=== PATIENT | female | born 1960 | race Caucasian/White ===

== ENCOUNTER → 2023-06-20 | Outpatient (CLI) | payer BC, SELFPAY ==
[2023-06-20 10:36] LABS: Vitamin D,25 Hydroxy 46.7 ng/mL
[2023-06-20 10:44] LABS: AST(SGOT) 14 U/L (15-37); Alanine Aminotransfer ALT/SGPT 21 U/L (13-56); Albumin, Serum 3.5 g/dL (3.2-5.0); Alkaline Phosphatase 101 U/L (45-117); Anion Gap 5 (5-15); BUN 15 mg/dL (7-18); BUN/Creat Ratio 19.4 RATIO (10-20); Chloride 109 mmol/L (98-107); Cholesterol 163 mg/dL (200); Creatinine, Serum 0.78 mg/dL (0.55-1.02); EST Glomerular Filtration Rate 80 mL/min (>60); Est Glom Filt Rate - Afr Amer 96 mL/min (>60); Globulin 3.6 g/dL (2.2-4.2); Glucose 109 mg/dL (74-106); High Density Lipoprotein 43 mg/dL; Potassium 3.6 mmol/L (3.5-5.1); Protein, Total 7.1 g/dL (6.4-8.2); Sodium Level 137 mmol/L (136-145); T4 Free Direct 0.85 ng/dL (0.76-1.46); Triglycerides 223 mg/dL; Very Low Density Lipoprotein 45 mg/dL (5-40)
== END | disposition home or self-care (01) ==
LOC: MTLAB 09:10
PROVIDERS: PCP Family Medicine; Referring Provider Family Medicine; Visit Provider Family Medicine
DX: E03.9 Hypothyroidism, unspecified (principal); E78.5 Hyperlipidemia, unspecified; R53.83 Other fatigue
CPT/HCPCS: 36415; 80053; 80061; 82306; 84439; 84443

== ENCOUNTER → 2023-08-22 | Outpatient (CLI) | payer BC, SELFPAY ==
[2023-08-22 18:13] LABS: Thyroid Stim Hormone (TSH) 0.02 uIU/mL (0.358-3.74)
== END | disposition home or self-care (01) ==
LOC: MTLAB 14:10
PROVIDERS: PCP Family Medicine; Referring Provider Family Medicine; Visit Provider Family Medicine
DX: E03.9 Hypothyroidism, unspecified (principal)
CPT/HCPCS: 36415; 84443

== ENCOUNTER → 2023-10-04 | Outpatient (CLI) | payer BC, SELFPAY ==
[2023-10-04 13:01] LABS: Thyroid Stim Hormone (TSH) 0.02 uIU/mL (0.358-3.74)
== END | disposition home or self-care (01) ==
LOC: MFPLAB 11:01
PROVIDERS: PCP Family Medicine; Visit Provider Family Medicine
DX: E03.9 Hypothyroidism, unspecified (principal)
CPT/HCPCS: 36415; 84443

== ENCOUNTER → 2024-01-10 | Outpatient (CLI) | payer BC, SELFPAY ==
[2024-01-10 15:40] LABS: Thyroid Stim Hormone (TSH) 0.026 uIU/mL (0.358-3.740)
== END | disposition home or self-care (01) ==
LOC: MTLAB 10:48
PROVIDERS: PCP Family Medicine; Referring Provider Family Medicine; Visit Provider Family Medicine
DX: E03.9 Hypothyroidism, unspecified (principal)
CPT/HCPCS: 36415; 84443

== ENCOUNTER → 2024-06-13 | Outpatient (CLI) | payer MEDICARE, SELFPAY ==
[2024-06-13 15:37] LABS: Thyroid Stim Hormone (TSH) 0.542 uIU/mL (0.358-3.740)
[2024-06-17 17:07] LABS: Thyroid Stim Immunoglob <0.10 IU/L (0.00-0.55)
== END | disposition home or self-care (01) ==
PROVIDERS: PCP Family Medicine; Referring Provider Family Medicine; Visit Provider Family Medicine
DX: E03.9 Hypothyroidism, unspecified (principal)
CPT/HCPCS: 36415; 84443; 84445

== ENCOUNTER → 2024-12-26 | Outpatient (CLI) | payer MEDICARE, SELFPAY ==
--- NOTE | 2024-12-26 14:21 | BD_ITS ---
PROCEDURE: DEXA BONE DENSITY STUDY 12/26/2024 REASON FOR EXAM: F, age 64 y/o . Postmenopausal. TECHNIQUE: DEXA BONE DENSITY STUDY COMPARISON: None FINDINGS: BMD and T-SCORES Lumbar spine: 0.896 g/cm2, T-score -1.4 Levels: L1 through L4 Left femoral neck: 0.616 g/cm2, T-score -2.1 Femoral neck comparison data not recommended for monitoring change. Left total hip: 0.782 g/cm2, T-score -1.3 Right femoral neck: 0.636 g/cm2, T-score -1.9 Femoral neck comparison data not recommended for monitoring change. Right total hip: 0.789 g/cm2, T-score -1.3 Change from prior: . The World Health Organization has defined the following categories based on bone density: Normal bone density: T-score equal to or greater than -1.0 Osteopenia: T-score between -1.0 and -2.5 Osteoporosis: T-score equal to or less than -2.5 The patient does meet the pharmacological treatment recommendations for prevention of osteoporosis. BD/Dexa Bone Density Study IMPRESSION: OSTEOPENIA. Recommend follow-up as clinically warranted. Reading Location: [facility]
--- NOTE | 2024-12-26 14:21 | BI_ITS ---
EXAM: SCRN MAMM (CAD)W/PEREZ BILAT DATE: 12/26/2024 CLINICAL HISTORY: F, Age 64 y/o , POST MENOPAUSE TECHNIQUE: SCRN MAMM (CAD)W/PEREZ BILAT COMPARISON: Prior exam(s) were compared FINDINGS: TISSUE DENSITY: The breasts are heterogeneously dense, which may obscure small masses. Bilateral Breast Mammographic Findings: No suspicious masses, calcifications or other abnormalities are identified. BI/SCRN MAMM (CAD)W/PEREZ BILAT IMPRESSION: No mammographic evidence of malignancy in either breast OVERALL FINAL ASSESSMENT BI-RADS 1: NEGATIVE. RECOMMENDATION: Routine annual follow-up in 1 Year A letter with findings and recommendations will be mailed to the patient. Reading Location: [id number]
--- NOTE | 2024-12-26 14:21 | BD_ITS ---
PROCEDURE: DEXA BONE DENSITY STUDY 12/26/2024 REASON FOR EXAM: F, age 64 y/o . Postmenopausal. TECHNIQUE: DEXA BONE DENSITY STUDY COMPARISON: None FINDINGS: BMD and T-SCORES Lumbar spine: 0.896 g/cm2, T-score -1.4 Levels: L1 through L4 Left femoral neck: 0.616 g/cm2, T-score -2.1 Femoral neck comparison data not recommended for monitoring change. Left total hip: 0.782 g/cm2, T-score -1.3 Right femoral neck: 0.636 g/cm2, T-score -1.9 Femoral neck comparison data not recommended for monitoring change. Right total hip: 0.789 g/cm2, T-score -1.3 Change from prior: . The World Health Organization has defined the following categories based on bone density: Normal bone density: T-score equal to or greater than -1.0 Osteopenia: T-score between -1.0 and -2.5 Osteoporosis: T-score equal to or less than -2.5 The patient does meet the pharmacological treatment recommendations for prevention of osteoporosis. BD/Dexa Bone Density Study IMPRESSION: OSTEOPENIA. Recommend follow-up as clinically warranted. Reading Location: [facility]
--- NOTE | 2024-12-26 14:21 | BI_ITS ---
EXAM: SCRN MAMM (CAD)W/PEREZ BILAT DATE: 12/26/2024 CLINICAL HISTORY: F, Age 64 y/o , POST MENOPAUSE TECHNIQUE: SCRN MAMM (CAD)W/PEREZ BILAT COMPARISON: Prior exam(s) were compared FINDINGS: TISSUE DENSITY: The breasts are heterogeneously dense, which may obscure small masses. Bilateral Breast Mammographic Findings: No suspicious masses, calcifications or other abnormalities are identified. BI/SCRN MAMM (CAD)W/PEREZ BILAT IMPRESSION: No mammographic evidence of malignancy in either breast OVERALL FINAL ASSESSMENT BI-RADS 1: NEGATIVE. RECOMMENDATION: Routine annual follow-up in 1 Year A letter with findings and recommendations will be mailed to the patient. Reading Location: [id number]
== END | disposition home or self-care (01) ==
PROVIDERS: PCP Family Medicine
DX: Z12.31 Encounter for screening mammogram for malignant neoplasm of breast (principal); Z78.0 Asymptomatic menopausal state; Z13.820 Encounter for screening for osteoporosis
CPT/HCPCS: 77063; 77067; 77080

== ENCOUNTER → 2025-02-13 | Outpatient (CLI) | payer MEDICARE, SELFPAY ==
--- NOTE | 2025-02-13 12:33 | RAD_ITS ---
PROCEDURE: ACUTE ABDOMEN INC CHEST 02/13/2025 REASON FOR EXAM: CONTRIPATION, PROLONGED TECHNIQUE: Procedure Code: [id number] Modality: DX Procedure: ACUTE ABDOMEN INC CHEST COMPARISON: None FINDINGS: Lungs are clear normally expanded without evidence of an acute abnormality, there is a granulomatous calcifications in the left mid lung field. Retained stool noted in the colon with air-fluid levels in the ascending colon on the upright film consistent with ileus. No free air Bony structures are unremarkable RAD/Acute Abdomen Inc Chest IMPRESSION: Colonic ileus Reading Location: [id number]
== END | disposition home or self-care (01) ==
LOC: MTRAD 12:33
PROVIDERS: PCP Family Medicine; Referring Provider Family Medicine; Visit Provider Family Medicine
DX: K59.00 Constipation, unspecified (principal)
CPT/HCPCS: 74022

== ENCOUNTER 2025-04-23 07:38 | Day surgery (SDC) | payer MEDICARE, SELFPAY ==
[2025-04-23] VITALS (8 sets, daily range): BP systolic 102–146; BP diastolic 45–93; PULSE 82–102; RESP 14–97; TEMP 36.3; O2SAT 97–100; BMI 29.9
--- OUTSIDE RECORDS SUMMARY | 2025-04-23 07:42 | XMS RPT_ITS | CCD ---
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 Name Role Phone Kathleen MILLER, Amarilys Primary Care Provider [phone] McMorrow TRAVOGRAPH OPERATOR-C, Zach Attending Provider [phone] McMorrow TRAVOGRAPH OPERATOR-C, Zach Referring Provider [phone] Kathleen MILLER, Amarilys Primary Care Physician [phone] McMorrow TRAVOGRAPH OPERATOR-C, Zach Attending Physician Kathleen MILLER, Amarilys Attending Physician [phone] Kathleen MILLER, Amarilys Referring Provider [phone] Kathleen, Chalon Referring Unavailable Kathleen, Chalon Primary Care Unavailable Kathleen, Chalon Attending Unavailable McMorrow TRAVOGRAPH OPERATOR, Zach Attending Unavailable McMorrow TRAVOGRAPH OPERATOR, Zach Referring Unavailable Kathleen, Chalon Primary Care Unavailable Kathleen, Chalon Referring Unavailable Kathleen, Chalon Primary Care Unavailable Kathleen, Chalon Attending Unavailable Kathleen, Chalon Referring Unavailable Kathleen, Chalon Primary Care Unavailable Supriya Thomas Attending Unavailable Problems Problem Classification Problem Date Documented Da te Episodic/Chronic Intestinal obstruction without hernia (1 source) Ileus, unspecified; Translations: [Ileus, unspecified] Onset: 03-13-2025 Episodic Other gastrointestinal disorders (1 source) Constipation, unspecified; Translations: [Constipation, unspecified] Onset: 03-13-2025 Episodic Other screening for suspected conditions (not mental disorders or infectious disease) (1 source) Encounter for screening mammogram for malignant neoplasm of breast; Translations: [Encounter for screening mammogram for malignant neoplasm of breast] Onset: 01-03-2025 Episodic Thyroid disorders (1 source) Hypothyroidism, unspecified; Translations: [Hypothyroidism, unspecified] Onset: 07-05-2024 Chronic Results Test Name Value Interpretation Reference Range Facility Gastroenterology Visit Repor ton 03-13-2025 Gastroenterology Visit Report [facility] [address] [place] [address] OFFICE VISIT Date of Service: 03/13/25 MR#: [id number] Acct: [id number] Name: GISELLE CHI Rep #: [id number] : 1960 Provider: SAMUEL bowen Age/Sex: 65/F Location[facility] Status: Signed Intake Vital Signs 03/13/25 14:09 Height 5 ft 6 in Weight: 183 lb BMI 29.5 BP 137/82 H Respiration 16 Pulse 99 Temp 97.0 F L Temp Source Temporal Pulse Oximetry (%) 98 Oxygen Delivery Method room air Intake Visit Reasons: COLONIC ILEUS Chief Complaint: constipation Tub Mender Required: No Accompanied by: Self Is patient in pain?: No Allergies No Known Allergies Allergy (Unverified 03/13/25 13:53) Medications ???Medication ???Instructions ???Recorded ???Confirmed ???Type calcium carbonate (Calcium 600) 600 mg PO QDAY 03/13/25 03/13/25 H istory cholecalciferol (vitamin D3) 50 50 mcg PO QDAY 03/13/25 03/13/25 H istory mcg (2,000 unit) capsule duloxetine 60 mg capsule,delayed 60 mg PO QDAY 03/13/25 03/13/25 Hi story release levothyroxine 100 mcg capsule 100 mcg PO QDAY 03/13/25 03/13/25 History linaclotide 290 mcg capsule 290 mcg PO QDAY 03/13/25 03/13/25 History (Linzess) magnesium glycinate 120 mg (as 360 mg PO QHS 03/13/25 03/13/25 Hi story glycinate) capsule polyethylene glycol 3350 17 4 g PO QDAY 03/13/25 03/13/25 Hist ory gram/dose oral powder (Miralax) rosuvastatin 20 mg tablet 20 mg PO QDAY 03/13/25 03/13/25 Hi story sodium sul 1.479 gram-potas ch See Rx Instructions PO .COMPLEX 03/13/25 Rx 0.188 gram-magnes sul 0.225 gram #28 tabs tablet (Sutab) Have you fallen in the past year?: No PFSH Medical History (Updated 03/13/25 @ 14:15 by Mya Polk) Thyroid disease Osteopenia Ileus Family History (Updated 03/13/25 @ 14:18 by Mya Polk) Mother Colon cancer Arthritis Hypertension High cholesterol Thyroid disorder Osteoporosis Father Heart disease Myocardial infarction Liver disease Brother Myocardial infarction defect Social History Smoking Status: Never smoker alcohol intake: never substance use type: does not use what type of physical activity do you participate in: walking HPI HPI Chief Complaint: constipation Details: Xray 02/13/2025 Colonic ileus - started on Linzess 290 and has given her more consistent pencil like poop - last colonoscopy 2.5 years ago - reports a change in bowel habits this past December, has not had a solid stool since onset of symptoms - feeling constipated, bloated and gas - she notes improvement in bloating with Linzess - she is also taking Miralax 1 capful daily - water intake is poop - non-smoker and no alcohol - denies any heart, lung or kidney disease - 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 ROS Const Constitutional: Positive for fatigue; No fever(s) or weight change ENT ENT: No difficulty swallowing Gastro GI: Positive for bloating and constipation; No abdominal pain, belching, change in bowel habits, change in stool character, coffee ground emesis, cramping, diarrhea, heartburn, difficulty swallowing, feeling full early, excessive flatus, incontinent of stools, Vomiting blood/hematemesis, Blood in stool, loose stools, Black,tarry stools, nausea/dyspepsia, pain with swallowing, vomiting or other Musc Musculoskeletal: Positive for stiffness and Arthritis; No joint pain Skin Skin: No yellowing of the eye or itchy eyes Psych Psychiatric: Positive for anxiety and Positive for depression Endo Endocrine: Positive for fatigue; No weight change Aller/Imm Allergy/Immunologic: No itchy eyes Alfredo/Lymp Hematologic/Lymphatic: No easy bleeding or easy bruising Exam Const General: cooperative, healthy appearing, no acute distress and well developed Nutritional Appearance: average body habitus and well nourished Orientation: alert and oriented x3 HENMT Head: normocephalic Ears: hearing grossly normal bilaterally Mouth: moist mucous membranes Teeth and gingiva: dentition normal Eyes Conjunctivae: conjunctivae normal Sclera: sclerae normal Neck Neck: normal visual inspection, full ROM and trachea midline Resp Effort Inspection: normal respiratory effort, able to speak in complete sentences and symmetric chest movement Auscultation: Bilateral: Clear to Auscultation Cardio Rate: regular rate Rhythm: regular rhythm GI Inspection: normal to inspection Auscultation: normal bowel sounds Palpation: soft and no hepatosplenomegaly Rectal Exam: deferred Skin General: no rashes or lesions noted and turgor normal Neuro General: patient alert and patient oriented x3 Cranial Nerves: other (CN (more content not included)... Normal [facility] Acute Abdomen Inc Cheston Acute Abdomen Inc Chest [facility] Imaging Services [address] [place] [address] Acute Abdomen Inc Chest MR#: [id number] Acct: [id number] Name: GISELLE CHI Rep #: [id number] : 1960 F 65 From: Oneil Mcelroy MD PCP: Dr. Amarilys Wang MD Status: REG CLI Study: Acute Abdomen Inc Chest Date of Exam: 02/13/25 Exam# [id number] Ordering Dr: Amarilys Wang MD PROCEDURE: ACUTE ABDOMEN INC CHEST 02/13/2025 REASON FOR EXAM: CONTRIPATION, PROLONGED TECHNIQUE: Procedure Code: RADABDCA Modality: DX Procedure: ACUTE ABDOMEN INC CHEST COMPARISON: None FINDINGS: Lungs are clear normally expanded without evidence of an acute abnormality, there is a granulomatous calcifications in the left mid lung field. Retained stool noted in the colon with air-fluid levels in the ascending colon on the upright film consistent with ileus. No free air Bony structures are unremarkable RAD/Acute Abdomen Inc Chest IMPRESSION: Colonic ileus Reading Location: [facility] CC: Dr. Amarilys Wang MD Safety And Security Manager: Signed Normal [facility] Breast imaging reportOrdered By: Alvina Partida on 01-02-2025 Study report [facility] Imaging Services [address] [place], [place] [id number] SCRN MAMM (CAD)W/PEREZ BILAT MR#: [id number] Acct: [id number] Name: GISELLE CHI Rep #: [id number] : 1960 F 64 From: Pavan Booth MD PCP: Dr. Amarilys Wang MD Status: REG CL I Study:SCRN MAMM (CAD)W/PEREZ BILAT Date of Exa m: 12/26/24 Exam# [id number] Ordering Dr: Zach Aguilera NP TRAVOGRAPH OPERATOR-C EXAM: SCRN MAMM (CAD)W/PEREZ BILAT DATE: 12/26/2024 CLINICAL HISTORY: F, Age 64 y/o , POST MENOPAUSE TECHNIQUE: SCRN MAMM (CAD)W/PEREZ BILAT COMPARISON: Prior exam(s) were compared FINDINGS: TISSUE DENSITY: The breasts are heterogeneously dense, which may obscure small masses. Bilateral Breast Mammographic Findings: No suspicious masses, calcifications or other abnormalities are identified. BI/SCRN MAMM (CAD)W/PEREZ BILAT IMPRESSION: No mammographic evidence of malignancy in either breast OVERALL FINAL ASSESSMENT BI-RADS 1: NEGATIVE. RECOMMENDATION: Routine annual follow-up in 1 Year A letter with findings and recommendations will be mailed to the patient. Reading Location: [id number] CC: Zach Aguilera; Dr. Amarilys Wang MD ~ Safety And Security Manager: Signed [facility] Bone density reportOrdered B y: Raúl Sanchez on 12-26-2024 Study report Skeletal system DXA [facility] Imaging Services [address] [place], [place] [address] Dexa Bone Density Study MR#: [id number] Acct: [id number] Name: GISELLE CHI Rep #: [id number] : 1960 F 64 From: Jorgito Sanchez MD PCP: Dr. Amarilys Wang MD Status: REG CL I Study:Dexa Bone Density Study Date of Exam: 12/26/24 Exam# [id number] Ordering Dr: Zach Aguilera NP PROCEDURE: DEXA BONE DENSITY STUDY 12/26/2024 REASON FOR EXAM: F, age 64 y/o . Postmenopausal. TECHNIQUE: DEXA BONE DENSITY STUDY COMPARISON: None FINDINGS: BMD and T-SCORES Lumbar spine: 0.896 g/cm2, T-score -1.4 Levels: L1 through L4 Left femoral neck: 0.616 g/cm2, T-score -2.1 Femoral neck comparison data not recommended for monitoring change. Left total hip: 0.782 g/cm2, T-score -1.3 Right femoral neck: 0.636 g/cm2, T-score -1.9 Femoral neck comparison data not recommended for monitoring change. Right total hip: 0.789 g/cm2, T-score -1.3 Change from prior: . The World Health Organization has defined the following categories based on bonedensity: Normal bone density: T-score equal to or greater than -1.0 Osteopenia: T-score between -1.0 and -2.5 Osteoporosis: T-score equal to or less than -2.5 The patient does meet the pharmacological treatment recommendations for prevention of osteoporosis. BD/Dexa Bone Density Study IMPRESSION: OSTEOPENIA. Recommend follow-up as clinically warranted. Reading Location: [id number] CC: Zach Aguilera; Dr. Amarilys Wang MD ~ Safety And Security Manager: Signed [facility] Dexa Bone Density Studyon Dexa Bone Density Study [facility] Imaging Services [address] [place] [address] Dexa Bone Density Study MR#: [id number] Acct: [id number] Name: GISELLE CHI Rep #: [id number] : 1960 F 64 From: Raúl lima MD PCP: Dr. Amarilys Wang MD Status: [facility] Study: Dexa Bone Density Study Date of Exam: 12/26/24 Exam# [id number] Ordering Dr: Zach Aguilera NP, NP PROCEDURE: DEXA BONE DENSITY STUDY 12/26/2024 REASON FOR EXAM: F, age 64 y/o . Postmenopausal. TECHNIQUE: DEXA BONE DENSITY STUDY COMPARISON: None FINDINGS: BMD and T-SCORES Lumbar spine: 0.896 g/cm2, T-score -1.4 Levels: L1 through L4 Left femoral neck: 0.616 g/cm2, T-score -2.1 Femoral neck comparison data not recommended for monitoring change. Left total hip: 0.782 g/cm2, T-score -1.3 Right femoral neck: 0.636 g/cm2, T-score -1.9 Femoral neck comparison data not recommended for monitoring change. Right total hip: 0.789 g/cm2, T-score -1.3 Change from prior: . The World Health Organization has defined the following categories based on bone density: Normal bone density: T-score equal to or greater than -1.0 Osteopenia: T-score between -1.0 and -2.5 Osteoporosis: T-score equal to or less than -2.5 The patient does meet the pharmacological treatment recommendations for prevention of osteoporosis. BD/Dexa Bone Density Study IMPRESSION: OSTEOPENIA. Recommend follow-up as clinically warranted. Reading Location: [id number] CC: Zach JARVIS NP-Mina Aguilera; Dr. Amarilys Wang MD Safety And Security Manager: Signed Normal [facility] SCRN MAMM (CAD)W/PEREZ BILATo n 12-26-2024 SCRN MAMM (CAD)W/PEREZ BILAT [facility] Imaging Services [address] [place] [id number] SCRN MAMM (CAD)W/PEREZ BILAT MR#: [id number] Acct: [id number] Name: GISELLE CHI Rep #: [id number] : 1960 F 64 From: Alvina Ledesma i, MD PCP: Dr. Amarilys Wang MD Status: REG CLI Study: SCRN MAMM (CAD)W/PEREZ BILAT Date of Exam: 12/13 Exam# [id number] Ordering Dr: Zach Aguilera NP TRAVOGRAPH OPERATOR -C EXAM: SCRN MAMM (CAD)W/PEREZ BILAT DATE: 12/26/2024 CLINICAL HISTORY: F, Age 64 y/o , POST MENOPAUSE TECHNIQUE: SCRN MAMM (CAD)W/PEREZ BILAT COMPARISON: Prior exam(s) were compared FINDINGS: TISSUE DENSITY: The breasts are heterogeneously dense, which may obscure small masses. Bilateral Breast Mammographic Findings: No suspicious masses, calcifications or other abnormalities are identified. BI/SCRN MAMM (CAD)W/PEREZ BILAT IMPRESSION: No mammographic evidence of malignancy in either breast OVERALL FINAL ASSESSMENT BI-RADS 1: NEGATIVE. RECOMMENDATION: Routine annual follow-up in 1 Year A letter with findings and recommendations will be mailed to the patient. Reading Location: [id number] CC: Zach BAKER McMorrow; Dr. Amarilys Wang MD Safety And Security Manager: Signed Normal [facility] Thyroid Stim Immunoglobon THY STIM IMMUNO <0.10 Normal 0.00-0.55 [facility] Comment on above: Order Comment: Order Date: 06/13/24 Order Info: [id number] - TSIMM Result Comment: Perf ormed at: [facility] Lab[address] [id number] Phlebotomy Coordinator: Bharath Abarca MD, Phone: [phone] Performed By: #### L [id number], [id number] #### [facility] Laboratory [address] [place], [address] Thyroid Stim Hormone (TSH)on 06-13-2024 TSH 0.542 uIU/mL Normal 0.358-3.740 [facility] Comment on above: Order Comment: Order Date: 06/13/24 Order Info: [id number] - TSH Performed By: #### L [id number], [id number] #### [facility] [address] [place], [address] Serum or plasma thyroid stim ulating hormone (TSH) measurement (units/volume)Ordered By: Amarilys Wang on 08-22-2023 TSH Qn 0.02 uIU/mL 0.358-3.74 [facility] Basophil percentageOrdered B y: Amarilys Wang on 06-20-2023 Bilirubin [Mass/Vol] 0.60 mg/dL 0.20-1.00 [facility] Comment on above: For patients on eltr ombopag therapy, use of Dimension [place] TBIL is not recommended. Chloride [Moles/Vol] 109 mmol/L 98-107 [facility] Cholesterol [Mass/Vol] 163 mg/dL <200 [facility] Comment on above: <200 mg/dL Desirable 200-240 mg/dL Borderline >240 mg/dL High Risk Glucose [Mass/Vol] 109 mg/dL 74-106 [facility] Comment on above: Fasting Glucose resu lt from 100 to 125 mg/dL suggests IMPAIRED HOMEOSTASIS per A.D.A. criteria. Potassium [Moles/Vol] 3.6 mmol/L 3.5-5.1 [facility] Protein [Mass/Vol] 7.1 g/dL 6.4-8.2 [facility] Sodium [Moles/Vol] 137 mmol/L 136-145 [facility] Triglyceride [Mass/Vol] 223 mg/dL <199 [facility] Comment on above: The drugs N-Acetylcy steine and Metamizole may falsely depress this assay.Serum Triglycerides Reference Interval Normal <150 mg/dL Borderline high 150 - 199 mg/dL High 200 - 499 mg/dL Very High > or = 500 mg/dL High density lipoprotein (HD L) measurementOrdered By: Amarilys Wang on 06-20-2023 Cholesterol in HDL (Body fld) [Mass/Vol] 43 mg/dL >40 [facility] Comment on above: The drugs N-Acetylcy steine and Metamizole may falsely depress this assay. Reference Range HDL <40 mg/dL Low HDL Cholesterol HDL >or= 60 mg/dL High HDL Cholesterol Laboratory - Chemistry and C hemistry - challengeOrdered By: Amarilys Wang on 06-20-2023 Albumin/Globulin [Mass ratio] 1.0 {ratio} 0.9-2.4 [facility] ALP [Catalytic activity/Vol] 101 U/L 45-117 [facility] ALT [Catalytic activity/Vol] 21 U/L 13-56 [facility] CO2 [Moles/Vol] 23.0 mmol/L 21.0-32.0 [facility] Globulin (S) [Mass/Vol] 3.6 g/dL 2.2-4.2 [facility] Urea nitrogen/Creatinine [Mass ratio] 19.4 mg/mg 10-20 [facility] Low density lipoprotein (LDL ) cholesterol measurementOrdered By: Amarilys Wang on 06-20-2023 Cholesterol in LDL (Body fld) [Moles/Vol] 75 mg/dL 0-130 [facility] No Panel InformationOrdered By: Amarilys Wang on 06-20-2023 Estimated GFR (MDRD) Amer 96 mL/min >60 [facility] Comment on above: GFR Calc Estimated GFR (MDRD) Non-Af Amer 80 mL/min >60 [facility] Comment on above: Non- GFR Calc Vitamin D 25-Hydroxy 46.7 ng/mL [facility] Comment on above: Vitamin D 25(OH) Sta tus Range Deficiency <20 ng/mL (50nmol/L) Insufficiency 20 - 30 ng/mL (50 - 75 nmol/L) Sufficiency 30 - 100 ng/mL (75 - 250 nmol/L) Toxicity >100 ng/mL (>250 nmol/L) Serum or plasma calcium komal urement (mass/volume)Ordered By: Amarilys Wang on 06-20-2023 Calcium [Mass/Vol] 9.0 mg/dL 8.5-10.1 [facility] Serum or plasma creatinine m easurement (mass/volume)Ordered By: Amarilys Wang on 06-20-2023 Creatinine [Mass/Vol] 0.78 mg/dL 0.55-1.02 [facility] Comment on above: The validity of the calculated GFR & GFRAA in patients over 70 years has not been determined. Clinical correlation is essential. Serum or plasma thyroid stim ulating hormone (TSH) measurement (units/volume)Ordered By: Amarilys Wang on 06-20-2023 TSH Qn 14.60 uIU/mL 0.358-3.74 [facility] Serum or plasma urea nitroge n measurement (mass/volume)Ordered By: Amarilys Wang on 06-20-2023 Urea nitrogen [Mass/Vol] 15 mg/dL 7-18 [facility] Thin prep Papanicolaou smear with manual screeningOrdered By: Amarilys Wang on 06-20-2023 Thin prep Papanicolaou smear with manual screening 3.5 g/dL 3.2-5.0 [facility] Thin prep Papanicolaou smear with manual screening 14 U/L 15-37 [facility] Thin prep Papanicolaou smear with manual screening 5 5-15 [facility] Thin prep Papanicolaou smear with manual screening 0.85 ng/dL 0.76-1.46 [facility] Very low density lipoprotein (VLDL) cholesterol measurementOrdered By: Amarilys Wang on 06-20-2023 Cholesterol in VLDL Calc [Moles/Vol] 45 mg/dL 5-40 [facility] Encounters Encounter Date Encounter Type Care Provider Facility Start: 03-13-2025 End: 03-13-2025 ambulatory Amarilys Wang [facility] Start: 02-13-2025 End: 02-13-2025 ambulatory Amarilys Wang MD Work Phone: -[facility] [place] Start: 02-13-2025 End: 02-13-[address] Amarilys Wang MD [facility] [place] Work Phone: Start: 02-13-2025 End: 02-13-2025 ambulatory Amarilys Wang Facility:[facility] Start: 12-26-2024 End: 12-26-2024 ambulatory Amarilys Wang MD Work Phone: -[facility]patient [facility] Start: 12-26-2024 End: 12-26-2024 Patient encounter procedure Zach Aguilera TRAVOGRAPH OPERATOR-C -[facility] Work Phone: Start: 12-26-2024 End: 12-26-2024 ambulatory Zach Aguilera TRAVOGRAPH OPERATOR Facility:[facility] Start: 06-13-2024 End: 06-13-2024 ambulatory Amarilys Wang Facility:[facility] Start: 08-22-2023 End: 08-22-2023 ambulatory [facility] Work Phone: Start: 08-22-2023 End: 08-22-2023 Patient encounter procedure [facility] Work Phone: Start: 06-20-2023 End: 06-20-2023 ambulatory [facility] Work Phone: Start: 06-20-2023 End: 06-20-2023 Patient encounter procedure [facility] Work Phone: Procedures Date Procedure Procedure Detail Performing Clinician Start: 02-13-2025 Plain X-ray abdomen Annie Wang MD Work Phone: Start: 12-26-2024 Dual energy X-ray absorptiometry Amarilys Wang MD Work Phone: Start: 12-26-2024 Screening mammography C pee Wang MD Work Phone: Payers Date Payer Category Payer Medicare [id number] 2024 Self-pay Unknown [id number] Unknown [id number] Unknown [id number] [id number] [id number] Unknown [id number] 2.16.8 [id number] Unknown [id number] 2.16.8 [id number] Social History Date Type Detail Facility Tobacco smoking stat NHIS Unknown if ever smoked [facility] Work Phone: Start: 1960 Sex Assigned At Female W [facility] Work Phone: Sex Female [facility] Radiology Diagnostic study note 02-15-2025 Note Date & Type Note Facility 02-15-2025 Radiology Diagnostic study note [facility] Imaging Services [address] [place] [address] Acute Abdomen Inc Chest MR#: [id number] Acct: [id number] Name: GISELLE CHI Rep #: [id number] : 1960 F 65 From: Shannon Mcelroy MD PCP: Dr. Amarilys Wang MD Status: REG CL I Study:Acute Abdomen Inc Chest Date of Exam: 02/13/25 Exam# [id number] Ordering Dr: Annie Wang MD PROCEDURE: ACUTE ABDOMEN INC CHEST 02/13/2025 REASON FOR EXAM: CONTRIPATION, PROLONGED TECHNIQUE: Procedure Code: RADABDCA Modality: DX Procedure: ACUTE ABDOMEN INC CHEST COMPARISON: None FINDINGS: Lungs are clear normally expanded without evidence of an acute abnormality, there is a granulomatous calcifications in the left mid lung field. Retained stool noted in the colon with air-fluid levels in the ascending colon on the upright film consistent with ileus. No free air Bony structures are unremarkable RAD/Acute Abdomen Inc Chest IMPRESSION: Colonic ileus Reading Location: [id number] CC: Dr. Amarilys Wang MD ~ Safety And Security Manager: Signed [facility] Evaluation note Note Date & Type Note Facility Evaluation note No assessment information availa [facility] Work Phone: Reason for referral (narrative) Note Date & Type Note Facility Reason for referral (narrative) No reason for referral information available [facility] Work Phone: Chief Complaint and Reason for Visit Chief Complaint Admit Date POST MENOPAUSE December 26, 2024 2:1 4pm Chief Complaint Admit Date POST MENOPAUSE December 26, 2024 2:1 4pm Contripation, prolonged February 13, 2025 12:31pm Summary Purpose Family History No Family History Records Found Advance Directives No Advanced Directives Records Found Additional Source Comments Care Teams (unrecognized sec tion and content) Team Status: Active Member Role Status Bernardino Wang MD Primary Care Provider Active Team Status: Inactive Member Role Status Bernardino Wang MD Primary Care Provide r, Attending Provider, Referring Provider Active Team Status: Active Member Role/Relationship Status Bernardino Wang MD Primary Care Provider Active Team Status: Inactive Member Role/Relationship Status Bernardino Wang MD Primary Care Provider Active St art: December 26, 2024 End: December 26, 2024 Zach Aguilera TRAVOGRAPH OPERATOR, TRAVOGRAPH OPERATOR-C Attending Provider Active Start: December 26, 2024 End: December 26, 2024 Zach Aguilera TRAVOGRAPH OPERATOR, TRAVOGRAPH OPERATOR-C Referring Provider Active Start: December 26, 2024 End: December 26, 2024 Team Status: Active Member Role/Relationship Status Bernardino Wang MD Primary care physician Active Team Status: Inactive Member Role/Relationship Status Bernardino Wang MD Primary care physician Active S tart: December 26, 2024 End: December 26, 2024 Zach Aguilera NP, TRAVOGRAPH OPERATOR-C Attending physician Active Start: December 26, 2024 End: December 26, 2024 Zach Aguilera TRAVOGRAPH OPERATOR, TRAVOGRAPH OPERATOR-C Referring Provider Active Start: December 26, 2024 End: December 26, 2024 Team Status: Inactive Member Role/Relationship Status Bernardino Wang MD Primary care physician Active S tart: February 13, 2025 End: February 13, 2025 Amarilys Wang MD Attending physician Active Star t: February 13, 2025 End: February 13, 2025 Amarilys Wang MD Referring Provider Active Start : February 13, 2025 End: February 13, 2025 Goals (unrecognized section and content) Goals may be documented in a n alternate sectionGoals may be documented in an alternate sectionGoals may be documented in an alternate section INFORMATION SOURCE (unrecogn ized section and content) DATE CREATED AUTHOR 03/15/2025 [facility] FOR RECORDS PERTAINING TO PATIENTS WHO ARE OR HAVE BEEN ENROLLED IN A CHEMICAL DEPENDENCY/SUBSTANCEABUSE PROGRAM, SOME INFORMATION MAY BE OMITTED. This clinical summary was aggregated from multiple sources. Caution should be exercised in using it in the provision of clinical care. This summary normalizes information from multiple sources, and as a consequence, information in this document may materially change the coding, format and clinical context of patient data. In addition, data may be omitted in some cases. CLINICAL DECISIONS SHOULD BE BASED ON THE PRIMARY CLINICAL RECORDS. [facility]. provides no warranty or guarantee of the accuracy or completeness of information in this document.
[2025-04-23] MEDS: Lactated Ringers 1,000 ML 15 ML IV (08:14)
--- NOTE | 2025-04-23 08:44 | PRE.ANES_ITS ---
ASA Classification* ASA Classification ASA Classification: 2 Assessment & Plan Anesthesia* Anesthesia Assessment Anesthesia Assessment: Discussed sedation and/or anesthesia options, risks, benefits, and alternatives with patient/parents/legal guardian/POA. Questions invited. The patient/parents/legal guardian/POA seems to understand and agrees to proceed with anesthesia plan. Reviewed the physical assessment, medical history, allergy history and patient home medications list prior to surgery/procedure/anesthetic and documented any changes. Performed airway and anesthesia risk assessments. Anesthesia Type Anesthesia Type: MAC Anesthesia Focused Assessment* Temperature: 97.4 F Pulse Rate: 102 Blood Pressure: 146/93 Respiratory Rate: 97 Pulse Ox: 97 Airway Assessment Mouth opens: >3 cm Mallampati Score: II Labs Anesthesia Preop lab: CBC CHEMISTRY Potassium, (3.5-5.1) 3.6 mmol/L 06/20/23, 09:13 Sodium, (136-145) 137 mmol/L 06/20/23, 09:13 BUN, (7-18) 15 mg/dL 06/20/23, 09:13 Creatinine, (0.55-1.02) 0.78 mg/dL 06/20/23, 09:13 Glucose, (74-106) 109 mg/dL H 06/20/23, 09:13 TSH, (0.358-3.740) 0.542 uIU/mL 06/13/24, 11:45 COAG Pre-Assessment Diagnosis/Proposed Procedure Planned Operative Procedure(s): COLONOSCOPY Anesthesia History 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 When Was Last Pacemaker Check QUESTION #4 FULL TEXT: You/Your Family Experience fever (hyperthermia) with Anesthesia Last Oral Intake Last Oral intake: Last Oral Intake NPO since 18:00 04/23/25 08:05 Meds taken in AM with sips of No 04/23/25 08:05 water? Meds patient instructed to take am of surgery PONV PONV - marine engine machinist: PONV - marine engine machinist Female Yes 04/21/25 09:36 HX of Motion Sickness No 04/21/25 09:36 HX of N/V After Surgery No 04/21/25 09:36 Non-Smoker Yes 04/21/25 09:36 Duration of Surgery greater No 04/21/25 09:36 than 60 minutes Number of Risk Factors 2 04/21/25 09:36 PONV Score Moderate Risk 04/21/25 09:36 Height & Weight Height & Weight: Anesthesia: Height & Weight Height 5 ft 6 in 04/23/25 08:05 Weight: 84 kg 04/23/25 08:05 Body Mass Index (BMI) 29.9 04/23/25 08:05 Respiratory Assessment Respiratory Assessment - marine engine machinist: Respiratory Tract Infection Hx - marine engine machinist Hx Respiratory Tract Infection No 04/21/25 09:36 STOP Sleep Apnea STOP Sleep Apnea - marine engine machinist: STOP Sleep Apnea - marine engine machinist Hx Hypertension No 04/21/25 09:36 Hx Sleep Apnea Yes 04/21/25 09:36 CPAP Yes 04/21/25 09:36 BIPAP No 04/21/25 09:36 Do you snore loudly (louder than talking or can be heard Do you often feel tired/ fatigued/ sleepy during daytime? Has anyone observed you stop breathing during sleep? STOP Results Positive 04/21/25 09:36 QUESTION #5 FULL TEXT : Do you snore loudly (louder than talking or can be heard through closed doors)? 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 Specify any problems Hx of Preganancy in last 3 No 04/21/25 09:36 Months Nurse Filling Out Transfusion [email or web address] 04/21/25 09:36 & Questions: Date: 04/21/25 04/21/25 09:36 Time: 09:41 04/21/25 09:36 Patient unable to answer at this time (ie. confused, unrespo /Reproduction History /Reproductive History - marine engine machinist: /Reproductive Hx- marine engine machinist Hx Now Gestational Age (in weeks): EDC: Hx Hx Para Hx Section SAB Does the father of the baby or his family experience fever w Father of the baby Malignant Hypertension history comment Active Medications Active Medications: Current Medications Generic Name Dose Route Start Last Admin Trade Name Freq PRN Reason Stop Dose Admin Lactated Ringer's 1,000 mls @ 15 mls/hr 04/23/25 08:00 04/23/25 08:14 IV 15 mls/hr .Q48H DOMINIQUE Administration PFSH Medical History Wears contact lenses Wears glasses Depression Anxiety CPAP (continuous positive airway pressure) dependence Sleep apnea Thyroid disease Osteopenia Ileus Home Medications Medication Instructions Recorded Last Taken Type calcium carbonate (Calcium 600) 600 mg PO QDAY PRN SUP PLEMENT 03/13/25 04/21/25 History cholecalciferol (vitamin D3) 50 50 mcg PO QDAY 5 04/21/25 History mcg (2,000 unit) capsule duloxetine 60 mg capsule,delayed 60 mg PO QDAY 5 04/23/25 History release levothyroxine 100 mcg capsule 100 mcg PO QDAY 03/13/25 04/23/25 History linaclotide 290 mcg capsule 290 mcg PO QDAY 03/13/25 1 06/23/24 History (Linzess) magnesium glycinate 120 mg (as 360 mg PO QHS 03/13/25 04/21/25 History glycinate) capsule polyethylene glycol 3350 17 4 g PO QDAY 03/13/2504/22 History gram/dose oral powder (Miralax) rosuvastatin 20 mg tablet 20 mg PO QDAY 03/13/2504/22 History sodium sul 1.479 gram-potas ch See Rx Instructions PO .COMPLEX 03/13/25 04/22/25 Rx 0.188 gram-magnes sul 0.225 gram #28 tabs tablet (Sutab) Allergy/AdvReac Type Severity Reaction Status Date / Time No Known Allergies Allergy Verified 04/23/25 08:03 Family History Mother Colon cancer Arthritis Hypertension High cholesterol Thyroid disorder Osteoporosis Father Heart disease Myocardial infarction Liver disease Brother Myocardial infarction defect Surgical History H/O: Social History Smoking Status: Never smoker alcohol intake: never substance use type: does not use what type of physical activity do you participate in: walking Review of Systems (Anesthesia) ROS Narrative System reviewed and no additional complaints, except as documented.
--- NOTE | 2025-04-23 09:00 | COLBX_PTH ---
PATIENT: GISELLE CHI LOC: EN U#:[id number] AGE/SX: 65/F ROOM: RE04/23/[address]: Dr. Syed Gomes DO : 1960 BED: DIS: 04/23/2025 SPEC #: [id number] RECD: 04/23/25 12:15 STATUS: CHARLINE RERito #: [id number] JAYLA: 04/23/25 09:[address]: Syed Gomes DEPT: SURGICAL PATHOLOGY RECD BY: Miracle Chaves ENTERED: 04/24/25 08:52 SP TYPE: COLON BX OTHR DR: Amarilys Wang MD Tissues: A - Transverse colon B - COLON BIOPSY Procedures: Surgery Specimen Level IV HEADER OPERATION: Colonoscopy with polypectomy and biopsy PRE-OP DIAGNOSIS: Ileus, constipation TISSUE SUBMITTED: A- Transverse colon polyp, B- Splenic flexure polyp biopsy MICROSCOPIC DIAGNOSIS A. Large intestine, transverse polyp, biopsies: - Tubular adenoma B. Large intestine, splenic flexure polyp: * Tubular adenoma MICROSCOPIC DESCRIPTION Slides are reviewed. GROSS DESCRIPTION A. Received in fixative is one container labeled with the patient's name and designated "Transverse colon polyp." The specimen consists of multiple irregular fragments of miranda tissue that in aggregate measure 1.6 x 0.9 x 0.1 cm, admixed with flocculent material. The specimen is totally submitted in one cassette. B. Received in fixative is one container labeled with the patient's name and designated "Splenic flexure polyp biopsy." The specimen consists of one irregular fragment of miranda tissue that measures 0.4 cm. The specimen is totally submitted in one cassette. [place] 04/23/2025 CPT:63150y8
--- NOTE | 2025-04-23 09:00 | PCM.HP.STD ---
HPI - General General Date of Admission: 04/23/25 Date of Service: 04/23/25 Chief Complaint: Constipation HPI Narrative GISELLE CHI, is a 65 F who presents [ Chief Complaint: constipation Details: Xray 02/13/2025 Colonic ileus - started on Linzess 290 and has given her more consistent pencil like poop - last colonoscopy 2.5 years ago - reports a change in bowel habits this past December, has not had a solid stool since onset of symptoms - feeling constipated, bloated and gas - she notes improvement in bloating with Linzess - she is also taking Miralax 1 capful daily - water intake is poop - non-smoker and no alcohol - denies any heart, lung or kidney disease - 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[employer] [facility] Medical History Wears contact lenses Wears glasses Depression Anxiety CPAP (continuous positive airway pressure) dependence Sleep apnea Thyroid disease Osteopenia Ileus Home Medications Medication Instructions Recorded Last Taken Type calcium carbonate (Calcium 600) 600 mg PO QDAY PRN SUPPLEMENT 03/13/25 04/21/25 History cholecalciferol (vitamin D3) 50 50 mcg PO QDAY 03/13/25 04/21/25 History mcg (2,000 unit) capsule duloxetine 60 mg capsule,delayed 60 mg PO QDAY 03/13/25 04/23/25 History release levothyroxine 100 mcg capsule 100 mcg PO QDAY 03/13/25 04/23/25 History linaclotide 290 mcg capsule 290 mcg PO QDAY 03/13/25 04/22/25 History (Linzess) magnesium glycinate 120 mg (as 360 mg PO QHS 03/13/25 04/21/25 History glycinate) capsule polyethylene glycol 3350 17 4 g PO QDAY 03/13/25 04/22/25 History gram/dose oral powder (Miralax) rosuvastatin 20 mg tablet 20 mg PO QDAY 03/13/25 04/22/25 History sodium sul 1.479 gram-potas ch See Rx Instructions PO .COMPLEX 03/13/25 04/22/25 Rx 0.188 gram-magnes sul 0.225 gram #28 tabs tablet (Sutab) Allergy/AdvReac Type Severity Reaction Status Date / Time No Known Allergies Allergy Verified 04/23/25 08:03 Family History Mother Colon cancer Arthritis Hypertension High cholesterol Thyroid disorder Osteoporosis Father Heart disease Myocardial infarction Liver disease Brother Myocardial infarction defect Surgical History H/O: Social History Smoking Status: Never smoker alcohol intake: never substance use type: does not use what type of physical activity do you participate in: walking ROS Constitutional Constitutional: Denies fatigue, fever(s), poor appetite, weight gain or weight loss Gastrointestinal Gastrointestinal: Denies belching, bloating, change in bowel habits, change in stool character, chewing difficulty, coffee ground emesis, constipation, cramping, diarrhea, dyspepsia, dysphagia, early satiety, excessive flatus, fecal incontinence, heartburn, hematemesis, hematochezia, hemorrhoids, loose stools, melena, nausea, odynophagia, rectal bleeding, tenesmus, vomiting or weight changes Vital Signs Vital Signs Vital Signs: 04/23/25 08:05 04/23/25 08:05 04/23/25 08:05 Temperature 97.4 F L Temperature Source Temporal Pulse Rate 102 H Respiratory Rate 97 H Respiratory Pattern Normal Blood Pressure 146/93 H Blood Pressure Mean 110 Blood Pressure Source Monitor Blood Pressure Position Semi-Fowlers Blood Pressure Location Right Arm Baseline BP 146/93 Pulse Ox 97 Oxygen Delivery Method Room Air 04/23/25 08:44 Temperature 97.4 F L Temperature Source Pulse Rate 102 H Respiratory Rate 97 H Respiratory Pattern Blood Pressure 146/93 H Blood Pressure Mean Blood Pressure Source Blood Pressure Position Blood Pressure Location Baseline BP Pulse Ox 97 Oxygen Delivery Method Weight Weight: 185 lb 3.013 oz Body Mass Index (BMI) 29.9 Physical Exam Const alert, oriented x3, no apparent distress and healthy appearing General Appearance: cooperative GI normal to inspection, nondistended, normoactive bowel sounds, soft to palpation, non-tender and non-distended Percussion: normal to percussion Rectal Exam: deferred Assessment & Plan Assessment/Plan (1) Ileus: (2) Constipation: PLAN: Assessment and Plan Assessment and Plan (1) Ileus: Status: Acute (2) Constipation: Status: Acute Medications: New sod sulf-pot chloride-mag sulf 1.479-0.188- 0.225 gram (Sutab) Take orally take as directed for split dose bowel prep. Do not follow instructions on box. 28 tabs 0RF Plan 65-year-old female with a history of chronic constipation, now presenting with colonic ileus. The patient's condition developed from a notable change in bowel habits with cessation of solid stools since December. The likely diagnosis of colonic ileus is corroborated by imaging and a persisting pattern of constipation despite interventions. A family history of colon cancer raises concern, prompting recommendation for colonoscopy. Linzess therapy appears to have improved bowel frequency with side effects consistent with expected pharmacological action. Patient Instructions: Colon - 1/2d Miralax and 1d SuTab - Increase fluid intake - Pear juice, kiwi fruit and prunes]
--- NOTE | 2025-04-23 10:27 | PCM.POST.ANE ---
Anesthesia: Postop Eval I Current Vital Signs Temperature: 97.3 F Pulse Rate: 89 Blood Pressure: 110/58 Respiratory Rate: 18 Pulse Ox: 99 Assessment Airway patent: Yes Spontaneous unlabored respirations: Yes nausea: No Vomiting: No Anesthesia Complication: No Fluid Hydration Crystalloid volume administer (ml): 300 Total IV fluid infused: 300 Progress Note Anesthesia document: Postop Eval 1 completed: Yes
--- NOTE | 2025-04-23 10:32 | POSTOPAN2_ITS ---
Anesthesia Postop Eval I Sum Postop Eval Completion status Anesthesia document: Postop Eval 1 completed: Yes Anesthesia Postop Eval I Summary Anesthesia Postop Eval I Summary: Anesthesia Postop Eval I: Assessment Summary Airway patent Yes 04/23/25 10:27 CAN [email or web address] Spontaneous unlabored Yes 04/23/25 10:27 CAN [email or web address].CSIR respirations Mental status nausea No 04/23/25 10:27 CAN [email or web address].CSIR Vomiting No 04/23/25 10:27 CAN [email or web address].CSIR Anesthesia Postop Eval I: Fluid Summary Crystalloid volume administer 300 04/23/25 10:27 CAN CLEANER.CSIR (ml) Colloids volume administered ( ml) Blood Product volume administered (ml) Total IV fluid infused 300 04/23/25 10:27 CAN [email or web address].CSIR Anesthesia Postop Eval I: Summary Notes Anesthesia Complication No 04/23/25 10:27 CAN [email or web address].CSIR Anesthesia Complication Comment: Post-operative progress note Anesthesia: Postop Eval II Evaluation Mental status: Awake Pain Level: 0 nausea: No Vomiting: No
--- NOTE | 2025-04-23 10:32 | PCM.POSTANE2 ---
Anesthesia Postop Eval I Sum Postop Eval Completion status Anesthesia document: Postop Eval 1 completed: Yes Anesthesia Postop Eval I Summary Anesthesia Postop Eval I Summary: Anesthesia Postop Eval I: Assessment Summary Airway patent Yes 04/23/25 10:27 PLUSH [email or web address] Spontaneous unlabored Yes 04/23/25 10:27 PLUSH [email or web address].CSIR respirations Mental status nausea No 04/23/25 10:27 PLUSH [email or web address].CSIR Vomiting No 04/23/25 10:27 PLUSH [email or web address] Anesthesia Postop Eval I: Fluid Summary Crystalloid volume administer 300 04/23/25 10:27 PLUSH [email or web address].CSIR (ml) Colloids volume administered ( ml) Blood Product volume administered (ml) Total IV fluid infused 300 04/23/25 10:27 PLUSH [email or web address].CSIR Anesthesia Postop Eval I: Summary Notes Anesthesia Complication No 04/23/25 10:27 PLUSH [email or web address].CSIR Anesthesia Complication Comment: Post-operative progress note Anesthesia: Postop Eval II Evaluation Mental status: Awake Pain Level: 0 nausea: No Vomiting: No
--- NOTE | 2025-04-23 10:35 | OP.PROVAT_ITS ---
04/23/2025 Amarilys Wang Md Re : Colonoscopy procedure for Pattie Pottsr Kathleen This procedure was performed on Wednesday, April 23, 2025. My impressions and recommendations are as follows: Impressions : - One 5 mm polyp at the splenic flexure, removed with a hot snare. Resected and retrieved. - One 5 mm polyp in the transverse colon, removed with a jumbo cold forceps. Resected and retrieved. Recommendations : - Repeat colonoscopy in 5 years for surveillance. - Continue present medications. My findings are described in the full procedure note, which is enclosed. If I can be of further assistance, please feel free to contact me at . Sincerely, Syed Gomes, 04/23/2025 10:34:49 AM This report has been signed electronically.
--- NOTE | 2025-04-23 10:35 | OP.COLON_ITS ---
Patient Name: Pattie Bruce Procedure Date: 04/23/2025 9:48 AM Date of : 1960 Age: 65 Procedure: Colonoscopy Indications: Epigastric abdominal pain Providers: Syed Gomes DO Referring MD: Amarilys Wang Md Medicines: Monitored Anesthesia Care Patient Profile: This is a 65 year old female. Refer to note in patient chart for documentation of history and physical. Last Colonoscopy: several years ago. Complications: No immediate complications. Procedure: Pre-Anesthesia Assessment: - Prior to the procedure, a History and Physical was performed, and patient medications and allergies were reviewed. The patient is competent. The risks and benefits of the procedure and the sedation options and risks were discussed with the patient. All questions were answered and informed consent was obtained. Patient identification and proposed procedure were verified by the physician in the pre-procedure area. Mental Status Examination: alert and oriented. Airway Examination: normal oropharyngeal airway and neck mobility. Respiratory Examination: clear to auscultation. CV Examination: normal. Prophylactic Antibiotics: The patient does not require prophylactic antibiotics. Prior Anticoagulants: The patient has taken no anticoagulant or antiplatelet agents. ASA Grade Assessment: II - A patient with mild systemic disease. After reviewing the risks and benefits, the patient was deemed in satisfactory condition to undergo the procedure. The anesthesia plan was to use monitored anesthesia care (MAC). Immediately prior to administration of medications, the patient was re-assessed for adequacy to receive sedatives. The heart rate, respiratory rate, oxygen saturations, blood pressure, adequacy of pulmonary ventilation, and response to care were monitored throughout the procedure. The physical status of the patient was re-assessed after the procedure. After I obtained informed consent, the scope was passed under direct vision. Throughout the procedure, the patient's blood pressure, pulse, and oxygen saturations were monitored continuously. The Colonoscope was introduced through the anus and advanced to the cecum, identified by appendiceal orifice and ileocecal valve. The colonoscopy was performed with ease. The patient tolerated the procedure well. The quality of the bowel preparation was adequate. The ileocecal valve, appendiceal orifice, and rectum were photographed. Scope In: 9:58:31 AM Scope Withdrawal Time 0 hours 10 minutes 52 seconds Scope Out: 10:17:54 AM Total Procedure Duration Time 0 hours 19 minutes 23 seconds Findings: The perianal and digital rectal examinations were normal. A 5 mm polyp was found in the splenic flexure. The polyp was sessile. The polyp was removed with a hot snare. Resection and retrieval were complete. A 5 mm polyp was found in the transverse colon. The polyp was sessile. The polyp was removed with a jumbo cold forceps. Resection and retrieval were complete. Verification of patient identification for the specimen was done. Estimated blood loss was minimal. Impression: - One 5 mm polyp at the splenic flexure, removed with a hot snare. Resected and retrieved. - One 5 mm polyp in the transverse colon, removed with a jumbo cold forceps. Resected and retrieved. Recommendation: - Repeat colonoscopy in 5 years for surveillance. - Continue present medications. Procedure Code(s): --- Professional --- 17932, Colonoscopy, flexible; with removal of tumor(s), polyp(s), or other lesion(s) by snare technique 42128, 59, Colonoscopy, flexible; with biopsy, single or multiple CPT copyright 2021 [employer]. All rights reserved. The codes documented in this report are preliminary and upon furniture assembly supervisor review may be revised to meet current compliance requirements. Syed Gomes DO 04/23/2025 10:34:49 AM This report has been signed electronically. Number of Addenda: 0 Note Initiated On: 04/23/2025 9:48 AM
== END 2025-04-23 10:56 | disposition home or self-care (01) ==
LOC: EN 07:43 → AC 07:43
PROVIDERS: PCP Family Medicine; Referring Provider Family Medicine; Visit Provider Internal Medicine Gastroenterology
PROC: 0DJD8ZZ Inspection of Lower Intestinal Tract, Via Natural or Artificial Opening Endoscopic (ICD-10-PCS; CPT 45378; principal; 2025-04-23 08:55)
DX: D12.3 Benign neoplasm of transverse colon (principal); K56.7 Ileus, unspecified; Z79.890 Hormone replacement therapy; Z79.899 Other long term (current) drug therapy; Z80.0 Family history of malignant neoplasm of digestive organs; E07.9 Disorder of thyroid, unspecified
CPT/HCPCS: 45385; 45380; 88305; J2405